=== PATIENT | female | born 1985 | race Two or more races ===

== ENCOUNTER 2019-11-29 15:20 | Outpatient (CLI) | payer BC ==
--- NOTE | 2019-11-29 16:10 | Non Stress Test Report ---
Non Stress Test Datetime Report Generated by CPN: 11/29/2019 16:10 DEMOGRAPHIC EGA NST: 36.3 INDICATION Indication for Study (NST) Other: GDM; IUP at 36.3 VITAL SIGNS Temperature - NST: 98.1 Pulse - NST: 88 RESP - NST: 18 NBPSYS NST: 112 NBPDIA NST: 57 MONITORING Monitor Explained: Monitor Explained; Test Explained; Patient Verbalized Understanding Time on Monitor: 11/29/2019 15:28 Time off Monitor: 11/29/2019 15:52 NST Duration: 24 NST INTERVENTIONS NST Interventions: PO Hydration Physician Notified NST: K. Bustamante, CNM BABY A: [id number] BABY A Movement : Present Contraction Frequency : x1 FHR Baseline : 135 Accelerations : 15X15 Decelerations : None Variability : Moderate 6-25bpm NST Review: Meets Criteria for Reactive NST NST Review and Verified By : ISMAEL Saenz NST Results: Reactive NST REPORT Report Trigger: Send Report
== END 2019-11-29 15:56 | disposition home or self-care (01) ==
LOC: LC 15:20
PROVIDERS: ATTEND Obstetrics & Gynecology Gynecology
DX: O24.419 Gestational diabetes mellitus in pregnancy, unspecified control (principal); Z3A.36 36 weeks gestation of pregnancy
CPT/HCPCS: 59025

== ENCOUNTER 2019-12-08 23:20 | Observation (INO) | payer BC ==
[2019-12-09] LABS: APPEARANCE,URINE CLEAR; BILIRUBIN,URINE NEGATIVE (NEGATIVE); COLOR,URINE STRAW; GLUCOSE, URINE NEGATIVE (NEGATIVE); KETONES,URINE NEGATIVE (NEGATIVE); LEUKOCYTE ESTERASE,URINE NEGATIVE (NEGATIVE); NITRITE,URINE NEGATIVE (NEGATIVE); PROTEIN,URINE NEGATIVE (NEGATIVE); URINE SPECIFIC GRAVITY 1.005; UROBILINOGEN,URINE NEGATIVE mg/dL (<2.0)
[2019-12-09 00:15] LABS: URINE AMPHETAMINES SCREEN NEGATIVE; URINE BARBITURATES SCREEN NEGATIVE; URINE BENZODIAZEPINES SCREEN NEGATIVE; URINE COCAINE SCREEN NEGATIVE; URINE MARIJUANA (THC) SCREEN NEGATIVE; URINE METHADONE SCREEN NEGATIVE; URINE PHENCYCLIDINE SCREEN NEGATIVE
[2019-12-09] MEDS ORDERED: RINGERS SOLUTION,LACTATED 1,000 ML IV PRN (01:45)
[2019-12-09] MEDS ORDERED: HYDROXYZINE PAMOATE 50 MG CAPSULE PO ONE (01:46)
[2019-12-09] MEDS ORDERED: HYDROXYZINE PAMOATE 50 MG CAPSULE ONE (02:07)
--- NOTE | 2019-12-09 09:44 | RADIOLOGY REPORT (SQ) ---
EXAM DESCRIPTION: U/S PROFILE W/O STRESS IMAGES COMPLETED DATE/TIME: 12/09/2019 9:20 am REASON FOR STUDY: BPP, confirm presentation COMPARISON: None. TECHNIQUE: Limited gomez-scale realtime and static images of the fetus to measure specified parameter s. LIMITATIONS: None. FINDINGS: HEART RATE: 152 beats per minute. NEGAR: 15.3 cm. MVP: 7.8 cm. BREATHING MOVEMENT: 2 points. MOVEMENT: 2 points. POSTURE AND TONE: 2 points. QUALITATIVE NEGAR: 2 points. OTHER: No other significant finding. IMPRESSION: BIOPHYSICAL PROFILE: 10/15. Trimester of : Third - 28 weeks to delivery COMMENT: BREATHING MOVEMENTS: 2 POINTS: PRESENT 0 POINTS: ABSENT MOTION: 2 POINTS: PRESENT 0 POINTS: ABSENT TONE: 2 POINTS: PRESENT 0 POINTS: ABSENT AMNIOTIC FLUID VOLUME: 2 POINTS: LARGEST POCKET GREATER THAN 2 CM DEPTH. 0 POINTS: NO POCKET OF 2 CM. TECHNICAL DOCUMENTATION: JOB ID: [id number] 2010 [employer]- All Rights Reserved Reading location - IP/workstation name: [email or web address]
== END 2019-12-09 09:37 | disposition home or self-care (01) ==
LOC: LC 23:20 → INTOOBSV 12-09 01:46 → LR 12-09 01:46
PROVIDERS: ADMIT Obstetrics & Gynecology; ATTEND Obstetrics & Gynecology
DX: O36.8330 Maternal care for abnormalities of the fetal heart rate or rhythm, third trimester, not applicable or unspecified (principal); O24.419 Gestational diabetes mellitus in pregnancy, unspecified control; O99.333 Smoking (tobacco) complicating pregnancy, third trimester; F17.210 Nicotine dependence, cigarettes, uncomplicated; Z3A.37 37 weeks gestation of pregnancy
CPT/HCPCS: 82962; 81005; 80307; 76819; G0378

== ENCOUNTER 2019-12-21 08:12 | Inpatient (IN) | payer BC ==
[2019-12-16 11:34] LABS: ABSOLUTE EOSINOPHILS # (AUTO) 0.2 10^3/uL (0.0-0.6); ABSOLUTE LYMPHOCYTES (AUTO) 1.8 10^3/uL (0.5-4.7); ABSOLUTE NEUT (AUTO) 8.9 10^3/uL (1.7-8.2); BASOPHILS % (AUTO) 0.4 % (0-2); EOSINOPHILS % (AUTO) 1.3 % (0-6); HEMOGLOBIN 14.5 g/dL (12.0-15.5); MEAN CORPUSCULAR HEMOGLOBIN 30.4 pg (27.0-33.4); MEAN CORPUSCULAR HGB CONC 34.5 g/dL (32.0-36.0); MEAN CORPUSCULAR VOLUME 88 fl (80-97); MONOCYTES % (AUTO) 8.4 % (3-13); PLATELET COUNT 170 10^3/uL (150-450); RED BLOOD COUNT 4.77 10^6/uL (3.72-5.28); RED CELL DISTRIBUTION WIDTH 12.9 % (11.5-14.0); SEGMENTED NEUTROPHILS % (AUTO) 74.9 % (42-78); TOTAL CELLS COUNTED % (AUTO) 100 %; WHITE BLOOD COUNT 11.9 10^3/uL (4.0-10.5)
[2019-12-16 11:39] LABS: AMORPHOUS SEDIMENT,URINE TRACE /HPF; APPEARANCE,URINE CLOUDY; BILIRUBIN,URINE NEGATIVE (NEGATIVE); COLOR,URINE YELLOW; GLUCOSE, URINE NEGATIVE (NEGATIVE); KETONES,URINE NEGATIVE (NEGATIVE); LEUKOCYTE ESTERASE,URINE NEGATIVE (NEGATIVE); NITRITE,URINE NEGATIVE (NEGATIVE); PROTEIN,URINE NEGATIVE (NEGATIVE); URINE SPECIFIC GRAVITY 1.012; UROBILINOGEN,URINE NEGATIVE mg/dL (<2.0)
[2019-12-16 12:06] LABS: URINE AMPHETAMINES SCREEN NEGATIVE; URINE BARBITURATES SCREEN NEGATIVE; URINE BENZODIAZEPINES SCREEN NEGATIVE; URINE COCAINE SCREEN NEGATIVE; URINE MARIJUANA (THC) SCREEN NEGATIVE; URINE METHADONE SCREEN NEGATIVE; URINE PHENCYCLIDINE SCREEN NEGATIVE
[~2019-12-21 08:12] MED LIST: LACTATED RINGERS 1000 ML IV PRN; RINGERS SOLUTION,LACTATED 1,000 ML IV ONE
[2019-12-21] MEDS: CEFAZOLIN 2 GM/D5W RTU 2 GM/50 ML RTUPB IV PRN ×2 (10:33→11:05)
[2019-12-21] MEDS ORDERED: KETOROLAC TROMETHAMINE INJ/PF 30 MG/1 ML SDV ONE (10:40)
[2019-12-21] MEDS ORDERED: EPHEDRINE SULFATE INJ 50 MG/1 ML AMPULE ONE (10:40)
[2019-12-21] MEDS ORDERED: MIDAZOLAM 2 MG/2 ML INJ ONE (10:40)
[2019-12-21] MEDS ORDERED: FENTANYL CITRATE INJ/PF 100 MCG/2 ML AMPUL ONE (10:40)
[2019-12-21] MEDS ORDERED: OXYTOCIN 10 UNIT/ML VIAL ONE (10:40)
[2019-12-21] MEDS ORDERED: PHENYLEPHRINE HCL INJ/PF 10 MG/1 ML SDV ONE (10:40)
[2019-12-21] MEDS ORDERED: OXYTOCIN/0.9 % SODIUM CHLORIDE 30 UNIT/500 ML RTUINJ ONE (10:41)
[2019-12-21] MEDS ORDERED: ACETAMINOPHEN 1,000 MG/100 ML RTUPB IV ONE (10:41)
[2019-12-21] MEDS ORDERED: ONDANSETRON HCL INJ/PF 4 MG/2 ML SDV ONE (10:41)
[2019-12-21] MEDS ORDERED: PROMETHAZINE HCL INJ 25 MG/1 ML VIAL IV PRN ×3 (11:16→12:07)
[2019-12-21] MEDS ORDERED: FENTANYL CITRATE INJ/PF 100 MCG/2 ML AMPUL IV PRN ×3 (11:16)
[2019-12-21] MEDS ORDERED: MEPERIDINE HCL/PF INJ 25 MG/1 ML DISP.SYRIN IV PRN (11:16)
[2019-12-21] MEDS ORDERED: ONDANSETRON HCL INJ/PF 4 MG/2 ML SDV IV PRN (11:16)
[2019-12-21] MEDS ORDERED: OXYCODONE-ACETAMINOPHEN 5-325 MG TABLET PO PRN ×3 (11:16→12:07)
[2019-12-21] MEDS ORDERED: ACETAMINOPHEN 325 MG TABLET PO PRN (12:07)
[2019-12-21] MEDS ORDERED: DIPH/PERTUSS(ACELL)/TETANUS VAC/PF 0.5 ML SYR (>=10YO) IM PRN (12:07)
[2019-12-21] MEDS ORDERED: MEASLES,MUMPS&RUBELLA VACC/PF 0.5 ML VIAL SUBCUT PRN (12:07)
[2019-12-21] MEDS ORDERED: OXYTOCIN/0.9 % SODIUM CHLORIDE 30 UNIT/500 ML RTUINJ IV PRN (12:07)
[2019-12-21] MEDS ORDERED: ACETAMINOPHEN 1,000 MG/100 ML RTUPB IV PRN (12:07)
[2019-12-21] MEDS ORDERED: RINGERS SOLUTION,LACTATED 1,000 ML IV PRN (12:07)
--- NOTE | 2019-12-21 12:14 | Operative Report ---
Operative Report DATE OF SURGERY: 12/21/19 PREOPERATIVE DIAGNOSIS: IUP @ 39 + wks, breech presentation POSTOPERATIVE DIAGNOSIS: same OPERATION: primary section SURGEON: PRIYANK LYLE ANESTHESIA: Spinal COMPLICATIONS: none ESTIMATED BLOOD LOSS: 850 cc INTRAOPERATIVE FINDINGS: male brigitte breech presentation apgars 9/9 PROCEDURE: PROCEDURE IN DETAIL: The patient was taken to the operating room, prepared and draped in a normal sterile fashion in a supine position with a leftward tilt. A transverse skin incision was made with a scalpel and carried through to the underlying layer of fascia with the same scalpel. The fascia was excised in the midline and extended laterally with Ann. The fascia was then dissected from the rectus muscle sharply with Ann and the rectus muscle was divided and the peritoneal cavity was entered sharply with the same Metzenbaum. With good visualization of the bladder and the uterus the bladder blade was inserted. The hysterotomy was nicked with a scalpel and extended laterally with surgeon finger fraction. The was then delivered atraumatically. The nose and mouth were suctioned with a suction bulb, the cord was clamped and cut and handed off to awaiting pediatricians. Cord blood was collected. The placenta was removed manually. The uterus was exteriorized and cleared of clots and debris. The hysterotomy was closed with 0 Monocryl in a running, locked fashion. A second layer of the same suture was used to imbricate to ensure hemostasis. The uterus was returned to the abdomen and peritoneal cavity was cleared of clots and debris. The rectus muscle and peritoneum were repaired with mattress stitch of 2-0 Chromic. The fascia was closed with 0-Vicryl. The subcutaneous layer was closed with plain catgut and the skin was closed with 4-0 Vicryl. The patient tolerated the procedure well. Sponge, lap, and needle counts correct x2 and the patient was taken to recovery in stable condition.
[2019-12-21] MEDS ORDERED: DIPHENHYDRAMINE HCL 50 MG/ML VIAL ONE (13:00)
[2019-12-21] MEDS: DIPHENHYDRAMINE HCL 50 MG/ML VIAL IV PRN ×2 (13:04→13:27)
--- NOTE | 2019-12-21 13:22 | Birth Certificate Data ---
Cert Data Datetime Report Generated by CPN: 12/21/2019 13:21 CERTIFICATE DATA 47a. Care: Yes (11/29/2019 15:26:SHARON Hinojosa) 48a. Number of Prev Live Births: 2 (11/29/2019 15:26:SHARON Franklin) 48b. Now Livin (11/29/2019 15:26:SHARON Franklin) 48c. Live Births Now : 0 (11/29/2019 15:26:QS system process) 48d. Date of Last Live : 11/10/2012 00:00 (11/29/2019 15:26:SHARON Franklin) 48e. Losses: 1 (11/29/2019 15:26:SHARON Franklin) 48f. Date of Last Preg Loss: 12/07/2005 00:00 (11/29/2019 15:26:SHARON Franklin) RISK FACTORS IN THIS 49a. Diabetes: Yes (11/29/2019 15:26:Suad Bernstein RN) Type of Diabetes: Gestational Diabetes (11/29/2019 15:26:Suad Bernstein RN) 49b. Hypertension: No (11/29/2019 15:26:Suad Bernstein RN) 49c. Previous Births: 0 (11/29/2019 15:26:SHARON Franklin) 49d. Stillborns: No (11/29/2019 15:26:Suad Bernstein RN) 49d. IUGR: No (11/29/2019 15:26:Suad Bernstein RN) 49e. Infertility Treatment: No (11/29/2019 15:26:Suad Bernstein RN) 49f. Previous Cesareans: 0 (11/29/2019 15:26:SHARON Franklin) Mother's Height 50b. Height Inches: 64 (12/21/2019 09:55:QS system process) Mother's Weight 51b. Weight at Delivery (lbs): 158 (12/21/2019 09:55:QS system process) Infections Present/Treated 53a. Gonorrhea: No (11/29/2019 15:26:Suad Bernstein RN) Results this Hospital Visit : Negative (11/29/2019 15:26:Suad Bernstein RN) 53b. Syphilis: No (11/29/2019 15:26:Suad Bernstein RN) 53c. Chlamydia: No (11/29/2019 15:26:Suad Bernstein RN) Results this Hospital Visit: Negative (11/29/2019 15:26:Suad Bernstein RN) 53d. Hepatitis B: No (11/29/2019 15:26:Suad Bernstein RN) Results this Hospital Visit: Negative (11/29/2019 15:26:Suad Bernstein RN) 53h. Mother Tested for HBsAG: Yes (11/29/2019 15::Suad Bernstein RN) 53i. Date Tested: 06/10/2019 00:00 (11/29/2019 15:26:Suad Bernstein RN) 53j. Test Result: Negative (11/29/2019 15::Suad Bernstein RN) Obstetric Procedures 54a, b, c. Obstetric Procedures: Ultrasound; NST (11/29/2019 15::Suad Bernstein RN) Cigarette Smoking Cigarette Smoking: Current Everyday Smoker. [id number] (11/29/2019 15::Suad Bernstein RN) 55a. 3 Months Before Preg - Ci (11/29/2019 15::Suad Bernstein RN) 55b. 1st Trimester of Preg- Ci (11/29/2019 15::Suad Bernstein RN) 55c. 2nd Trimester of Preg- Ci (11/29/2019 15:26:Suad Bernstein RN) 55d. 3rd Trimester of Preg- Ci (11/29/2019 15:26:Suad Bernstein RN) Onset of Labor 56a. PROM >12 Hrs: 0.00 (11/29/2019 15:26:QS system process) 57a. Induction of Labor: N/A (11/29/2019 15:26:Beverly Krueger RN) 57c. Non-Vertex Presentation A: N/A (11/29/2019 15:26:Beverly Krueger RN) 57d. Steroids - Lung Mat: None (11/29/2019 15:26:Beverly Krueger RN) 57d. Steroids - Lung Mat: Not Applicable (11/29/2019 15::Beverly Krueger RN) 57f. Mat Ch[place] or Temp >100.4: 97.5 (11/29/2019 15:26:Beverly Krueger RN) 57g. Moderate/Heavy Meconium: Clear (11/29/2019 15:26:Beverly Krueger RN) 57h. Intolerance of Labor: Breech Presentation (11/29/2019 15:26:Beverly Krueger RN) 57i. Epidural/Spinal Anesthesia: None (11/29/2019 15:26:Beverly Krueger RN) Method of Delivery 58a. Forceps - Unsuccessful A: N/A (11/29/2019 15:26:Beverly Krueger RN) 58b. Vacuum - Unsuccessful A: N/A (11/29/2019 15:26:Beverly Krueger RN) 58c. Presentation at 58c. Presentation at - A : N/A (11/29/2019 15:26:Beverly Krueger RN) 58c. Presentation at - A : Seth (11/29/2019 15:26:Beverly Krueger RN) 58c. Presentation at - A : Breech (11/29/2019 15:26:Abdirahman Kat [facility]) Final Route and Method of Del 58d. Baby A Route/Delivery: (11/29/2019 15:26:Abdirahman Kat [facility]) 58e. Trial of Labor Attempted: No (11/29/2019 15:26:Beverly Krueger RN) 58e. Trial of Labor Attempted A: N/A (11/29/2019 15:26:Beverly Krueger RN) 58e. Trial of Labor Attempted B: N/A (11/29/2019 15:26:Beverly ISMAEL Krueger) Birthweight Baby A: 3760 (11/29/2019 15:26:Deborah Rivera RN) 60a. Pounds : 8 (11/29/2019 15:26:QS system process) 60b. Ounces: 5 (11/29/2019 15:26:QS system process) 61. GA at Delivery Baby A: 39.4 (11/29/2019 15:26:GEMA Mars) : Full Term- 39- 40.6 Weeks (11/29/2019 15::QS system process) 62a. 5 Minute Baby A: 9 (11/29/2019 15:26:QS system process)
--- NOTE | 2019-12-21 13:22 | Delivery Summary ---
Del Sum A-C Datetime Report Generated by CPN: 12/21/2019 13:21 DELIVERY PERSONNEL DELIVERY PERSONNEL: [id number] Delivery Doctor:: Hilda Langford MD BOILERMAKER LOFTSMAN:: Reji Sweeney CRNA Environmental Air Specialist:: Beverly Krueger RN Neonatal Nurse Practitioner:: GEMA Verduzco Nursery Nurse:: Fernanda Rivera RN Master Plumber/GARNETTER: Marie Negrete CST Master Plumber/GARNETTER: Suad Long ST Additional Personnel: : Blanca Victoria RN MATERNAL INFORMATION Delivery Anesthesia: Spinal Medications After Delivery: Pitocin 30 Units in 500ml NS/D5W; Pitocin Drip 20 Units/1000ml NSS Delivery QBL: 600 Maternal Complications: None LABOR SUMMARY EDC: 12/24/2019 00:00 No. Babies in Womb: 1 Attempted: No Labor Anesthesia: None LABOR INFORMATION Reason for Induction: Not Applicable Oxytocin: N/A Group B Beta Strep: negative Name of Antibiotic Given: NA Steroids Given: None Reason Steroids Not Administered: Not Applicable MEMBRANES Membranes Rupture Method: Artificial Rupture of Membranes: 12/21/2019 11:13 Length of Rupture (hr): 0.00 Amniotic Fluid Color: Clear Amniotic Fluid Amount: Moderate Amniotic Fluid Odor: Normal STAGES OF LABOR Stage 3 hr: 0 Stage 3 min: 1 CSECTION DELIVERY Primary Indication: Breech Presentation CSection Urgency: Scheduled CSection Incidence: Primary Labor: No Labor Elective: Nonelective CSection Incision: Lower Uterine Transverse BABY A INFORMATION Delivery Date/Time: 12/21/2019 11:13 Method of Delivery: Nurse Controlled Delivery: No Born in Route : No : N/A Forceps: N/A Vacuum Extraction: N/A Shoulder Dystocia : No PRESENTATION/POSITION BABY A Presentation: Breech Cephalic Presentation: N/A Breech Presentation: Seth PLACENTA INFORMATION BABY A Placenta Delivery Time : 12/21/2019 11:14 Placenta Method of Delivery: Manual Removal Placenta Status: Delivered SCORES BABY A Heart Rate 1 min: >100 bpm Resp Effort 1 min: Good Cry Reflex Irritability 1 min: Cough or Sneeze or Pulls Away Muscle Tone 1 min: Active Motion Color 1 min: Blue/Pale Resuscitation Effort 1 min: Tactile Stimulation SCORE 1 MIN: 8 Heart Rate 5 min: >100 bpm Resp Effort 5 min: Good Cry Reflex Irritability 5 min: Cough or Sneeze or Pulls Away Muscle Tone 5 min: Active Motion Color 5 min: Body [place], Extremities Blue Resuscitation Effort 5 min: Tactile Stimulation SCORE 5 MIN: 9 INFORMATION BABY A Gestational Age at Delivery: 39.4 Gestational Status: Full Term- 39- 40.6 Weeks Infant Outcome : Liveborn Infant Condition : Stable Infant Sex: Male IDENTIFICATION BABY A Infant Verification Date/Time: 12/21/2019 11:15 ID Band Number: [id number] Mother's Name Verified: Yes Infant RN Verifying : AnayaTashi Krueger RN Additional Verifying Personnel: Endy Victoria RN WEIGHT/LENGTH BABY A Birthweight (gm): 3760 Weight (lb): 8 Weight (oz): 5 Length (in): 20.75 Infant Length (cm): 52.71 CORD INFORMATION BABY A No. Cord Vessels: 3 Nuchal Cord : N/A Cord Blood Taken: Yes-For Eval (Mom's Blood Type - or O+) ASSESSMENT BABY A Infant Complications: None Physical Findings at Delivery: Within Normal Limits Infant Respirations: Appears Normal Skin to Skin: No Traveling Nurse/ALS Called : Yes Transferred To: Nursery BABY B INFORMATION : N/A
[2019-12-21] MEDS ORDERED: KETOROLAC TROMETHAMINE INJ/PF 30 MG/1 ML SDV IV SCH (14:00)
[2019-12-21] MEDS: OXYCODONE-ACETAMINOPHEN 5-325 MG TABLET PO PRN ×3 (15:24→23:32)
[2019-12-21] MEDS: MORPHINE SULFATE 10 MG/ML INJ IV PRN ×2 (16:25→20:33)
[2019-12-21] MEDS ORDERED: IBUPROFEN 800 MG TABLET PO SCH (18:00)
[2019-12-21] MEDS: DOCUSATE SODIUM 100 MG CAPSULE PO SCH (18:08)
[2019-12-22] MEDS: MORPHINE SULFATE 10 MG/ML INJ IV PRN (01:27)
[2019-12-22] MEDS ORDERED: KETOROLAC TROMETHAMINE INJ/PF 30 MG/1 ML SDV IV SCH (02:00)
[2019-12-22] MEDS: OXYCODONE-ACETAMINOPHEN 5-325 MG TABLET PO PRN ×5 (04:27→22:18)
[2019-12-22 08:38] LABS: HEMATOCRIT 36.1 % (36.0-47.0); HEMOGLOBIN 12.5 g/dL (12.0-15.5); MEAN CORPUSCULAR HEMOGLOBIN 30.6 pg (27.0-33.4); MEAN CORPUSCULAR HGB CONC 34.5 g/dL (32.0-36.0); MEAN CORPUSCULAR VOLUME 89 fl (80-97); PLATELET COUNT 162 10^3/uL (150-450); RED BLOOD COUNT 4.08 10^6/uL (3.72-5.28); RED CELL DISTRIBUTION WIDTH 12.9 % (11.5-14.0); WHITE BLOOD COUNT 15.4 10^3/uL (4.0-10.5)
--- NOTE | 2019-12-22 09:44 | PDOC PROGRESS REPORT ---
Subjective-OB Progress Note for:: 12/22/19 - POD #1, pt UOB, voiding, s/p Primary for breech. O+, bottlefeeding Physical Exam (OB) Vital Signs: Temp Pulse Resp BP Pulse Ox 97.4 F 76 20 111/67 100 12/22/19 08:58 12/22/19 08:00 12/22/19 08:00 12/22/19 08:00 12/22/19 08:00 Intake & Output 12/21/19 12/22/19 12/23/19 06:59 06:59 06:59 Intake Total 2100 Output Total 3000 Balance -900 Weight 71.6 kg 71.668 kg - General General Appearance: Appears well, Alert In distress: None - PIH/Pre-Eclampsia DTR's: 2 + Clonus: Negative Headache: Absent Epigastric Pain: No Visual Changes: No - Dressing Removed: No Incision: Dressing Closure Type: opsite - Maternal Morbidity 59. Maternal Morbidity (serious complications experinced by the mother associated with labor and delivery: None of the above - Lochia Lochia Amount: Small 10-25 ml Lochia Color: Rubra/Red - Abdomen Description: Tender, Soft Hernia Present: No Fundal Description: Firm, Midline Fundal Height: u/u - u/2 - Respiratory Respiratory Status: No respiratory distress - Abdominal Tenderness: Nontender - Genitourinary Genitourinary Note: voding - Extremities Upper extremity: Normal inspection Lower extremities: Normal inspection - Neurological Cognition: Normal Orientation: AAOx4 - Psychological Associated symptoms: Normal affect, Normal mood - Skin Skin Temperature: Warm Skin Moisture: Dry Objective-Diagnostic Laboratory: 12/22/19 07:49 12/22/19 07:49 WBC 15.4 H RBC 4.08 Hgb 12.5 Hct 36.1 MCV 89 MCH 30.6 MCHC 34.5 RDW 12.9 Plt Count 162 Assessment and Plan(PN) - Assessment and Plan (1) Breech presentation Qualifiers: Fetus number: single or unspecified fetus Qualified Code(s): O32.1XX0 - Maternal care for breech presentation, not applicable or unspecified Is this a current diagnosis for this admission?: Yes (2) S/P primary low transverse Is this a current diagnosis for this admission?: Yes Plan:: Ambulation encouraged, Routine Post Op and PP orders - Time Spent with Patient Time with patient: Less than 15 minutes Medications reviewed and adjusted accordingly: Yes - Disposition Anticipated Discharge Disposition: Home, Self Care Anticipated Discharge Timeframe: within 48 hours
[2019-12-22] MEDS: DOCUSATE SODIUM 100 MG CAPSULE PO SCH ×2 (09:53→17:14)
[2019-12-22] MEDS: PRENATAL VITAMIN W DHA CAPSULE PO SCH (09:53)
[2019-12-22] MEDS: IBUPROFEN 800 MG TABLET PO SCH ×3 (13:18→23:28)
[2019-12-22] MEDS: SIMETHICONE 80 MG TAB.CHEW PO PRN (17:13)
[2019-12-23] MEDS: OXYCODONE-ACETAMINOPHEN 5-325 MG TABLET PO PRN ×2 (02:15→08:47)
[2019-12-23] MEDS: SIMETHICONE 80 MG TAB.CHEW PO PRN (02:16)
[2019-12-23] MEDS: IBUPROFEN 800 MG TABLET PO SCH (06:14)
--- NOTE | 2019-12-23 09:30 | PDOC DISCHARGE SUMMARY ---
Impression - Admit/DC Date/PCP Admission Date/Primary Care Provider: 12/21/19 08:12 PRIYANK LYLE MD Discharge Date: 12/23/19 - Discharge Diagnosis (1) Breech presentation Is this a current diagnosis for this admission?: Yes (2) S/P primary low transverse Is this a current diagnosis for this admission?: Yes - Additional Information Resuscitation Status: Full Code Discharge Diet: Regular Discharge Activity: Balance Activity w/Rest, No Lifting Over 10 Pounds, No Lifting/Push/Pulling, Pelvic Rest, No tub bath Referrals: PRIYANK LYLE MD [Primary Care Provider] - Prescriptions: Oxycodone HCl/Acetaminophen [Percocet 5-325 mg Tablet] 1 tab PO Q4HP PRN #30 tablet PRN Reason: For Pain Scale 3-5 Ibuprofen [Motrin 800 mg Tablet] 800 mg PO Q8HP PRN #60 tablet PRN Reason: Home Medications: 95/Iron Fum/Folic/Dha [ + Dha Combo Pack] 1 each PO DAILY 11/29/19 Valacyclovir HCl [Valtrex 500 mg Tablet] 500 mg PO DAILY 11/29/19 Ibuprofen [Motrin 800 mg Tablet] 800 mg PO Q8HP PRN #60 tablet 12/23/19 Oxycodone HCl/Acetaminophen [Percocet 5-325 mg Tablet] 1 tab PO Q4HP PRN #30 tablet 12/23/19 HPI Gestational Age: 39.4 Reason(s) for Admission: Ceasarean Section-Primary Admission Note: Breech presentation Procedures: None Intrapartum Procedure(s): : Low Cervical, Transverse Hospital Course 59. Maternal Morbidity (serious complications experinced by the mother associate d with labor and delivery: None of the above Results Laboratory Results: WBC 15.4 10^3/uL (4.0-10.5) H 12/22/19 07:49 RBC 4.08 10^6/uL (3.72-5.28) 12/22/19 07:49 Hgb 12.5 g/dL (12.0-15.5) 12/22/19 07:49 Hct 36.1 % (36.0-47.0) 12/22/19 07:49 MCV 89 fl (80-97) 12/22/19 07:49 MCH 30.6 pg (27.0-33.4) 12/22/19 07:49 MCHC 34.5 g/dL (32.0-36.0) 12/22/19 07:49 RDW 12.9 % (11.5-14.0) 12/22/19 07:49 Plt Count 162 10^3/uL (150-450) 12/22/19 07:49 Lymph % (Auto) 15.0 % (13-45) 12/16/19 10:59 Ada % (Auto) 8.4 % (3-13) 12/16/19 10:59 Eos % (Auto) 1.3 % (0-6) 12/16/19 10:59 Baso % (Auto) 0.4 % (0-2) 12/16/19 10:59 Absolute Neuts (auto) 8.9 10^3/uL (1.7-8.2) H 12/16/19 10:59 Absolute Lymphs (auto) 1.8 10^3/uL (0.5-4.7) 12/16/19 10:59 Absolute Monos (auto) 1.0 10^3/uL (0.1-1.4) 12/16/19 10:59 Absolute Eos (auto) 0.2 10^3/uL (0.0-0.6) 12/16/19 10:59 Absolute Basos (auto) 0.0 10^3/uL (0.0-0.2) 12/16/19 10:59 Seg Neutrophils % 74.9 % (42-78) 12/16/19 10:59 POC Glucose 89 mg/dL (70-110) 12/21/19 09:05 Urine Color YELLOW 12/16/19 10:59 Urine Appearance CLOUDY 12/16/19 10:59 Urine pH 7.0 (5.0-9.0) 12/16/19 10:59 Ur Specific Grethel 1.012 12/16/19 10:59 Urine Protein NEGATIVE mg/dL (NEGATIVE) 12/16/19 10:59 Urine Glucose (UA) NEGATIVE mg/dL (NEGATIVE) 12/16/19 10:59 Urine Ketones NEGATIVE mg/dL (NEGATIVE) 12/16/19 10:59 Urine Blood NEGATIVE (NEGATIVE) 12/16/19 10:59 Urine Nitrite NEGATIVE (NEGATIVE) 12/16/19 10:59 Urine Bilirubin NEGATIVE (NEGATIVE) 12/16/19 10:59 Urine Urobilinogen NEGATIVE mg/dL (<2.0) 12/16/19 10:59 Ur Leukocyte Esterase NEGATIVE (NEGATIVE) 12/16/19 10:59 Urine WBC (Auto) 1 /HPF 12/16/19 10:59 Urine RBC (Auto) 1 /HPF 12/16/19 10:59 Squamous Epi Cells Auto 4 /HPF 12/16/19 10:59 Amorphous Sediment Auto TRACE /HPF 12/16/19 10:59 Urine Mucus (Auto) RARE /LPF 12/16/19 10:59 Urine Ascorbic Acid NEGATIVE (NEGATIVE) 12/16/19 10:59 Urine Opiates Screen NEGATIVE 12/16/19 10:59 Urine Methadone Screen NEGATIVE 12/16/19 10:59 Ur Barbiturates Screen NEGATIVE 12/16/19 10:59 Ur Phencyclidine Scrn NEGATIVE 12/16/19 10:59 Ur Amphetamines Screen NEGATIVE 12/16/19 10:59 U Benzodiazepines Scrn NEGATIVE 12/16/19 10:59 Urine Cocaine Screen NEGATIVE 12/16/19 10:59 U Marijuana (THC) Screen NEGATIVE 12/16/19 10:59 COVID-19 Source See comment 12/16/19 10:59 COVID-19 (AUBREY) Not Detected (Not Detect) 12/16/19 10:59 Blood Type O POSITIVE 12/20/19 12:13 Antibody Screen NEGATIVE 12/20/19 12:13 Plan Plan of Treatment: F/u at [facility] as scheduled for incision check Time Spent: Less than 30 Minutes
[2019-12-23] MEDS: PRENATAL VITAMIN W DHA CAPSULE PO SCH (09:52)
[2019-12-23] MEDS: DOCUSATE SODIUM 100 MG CAPSULE PO SCH (09:52)
[2019-12-23 10:35] VITALS: BP 134/75
== END 2019-12-23 12:50 | disposition home or self-care (01) | DRG 787 ==
LOC: 2S 08:12
PROVIDERS: ADMIT Obstetrics & Gynecology; ATTEND Obstetrics & Gynecology
PROC: 10D00Z1 Extraction of Products of Conception, Low, Open Approach (ICD-10-PCS; principal; 2019-12-21)
DX: O32.1XX0 Maternal care for breech presentation, not applicable or unspecified (principal); O98.52 Other viral diseases complicating childbirth; O24.429 Gestational diabetes mellitus in childbirth, unspecified control; B00.9 Herpesviral infection, unspecified; O99.334 Smoking (tobacco) complicating childbirth; F17.210 Nicotine dependence, cigarettes, uncomplicated; Z3A.39 39 weeks gestation of pregnancy; Z37.0 Single live birth; Z79.899 Other long term (current) drug therapy; Z11.59 Encounter for screening for other viral diseases
CPT/HCPCS: 1961; 36415; 59025; 80307; 81001; 82962; 85025; 85027; 86850; 86900; 86901; 87635; 94760; 94799; C9803; J0131; J0690; J1200; J1885; J2250; J2270; J2370; J2405; J2590; J3010; J3490; J7120